=== PATIENT | male | born 1980 | race Caucasian/White ===

== ENCOUNTER 2019-09-16 08:52 | Inpatient (IN) | payer BC, OTHER ==
[~2019-09-16] VITALS: Ht 160 cm; Wt 54.5 kg
[2019-09-16 09:15] LABS: BASOPHILS % (AUTO) 0.3 % (0.0-5.0); EOSINOPHILS % (AUTO) 2.4 % (0.0-8.0); HEMATOCRIT 26.8 % (42-54); LYMPHOCYTES % (AUTO) 8.9 % (21.0-51.0); MEAN CORPUSCULAR HEMOGLOBIN 37.8 pg (27.0-33.0); MEAN CORPUSCULAR HGB CONC 33.5 g/dL (32.0-36.0); MONOCYTES % (AUTO) 7.5 % (3.0-13.0); NEUTROPHILS % (AUTO) 80.9 % (40.0-77.0); PLATELET COUNT (AUTO) 431 K/uL (130-400); RED BLOOD CELL COUNT(AUTO) 2.37 MIL/uL (4.50-6.20); RED CELL DISTRIBUTION WIDTH 19.6 % (11.0-15.5); WHITE BLOOD COUNT (AUTO) 20.1 K/uL (4.8-10.8)
[2019-09-16 09:28] LABS: POTASSIUM 3.1 mmol/L (3.5-5.1)
[2019-09-16 09:30] LABS: INR 1.64 (0.85-1.15); PARTIAL THROMBOPLASTIN TIME 33.4 SEC (26.3-35.5); PROTHROMBIN TIME 16.9 SEC (9.6-11.6)
[2019-09-16 09:32] LABS: ALBUMIN 1.6 g/dL (3.5-5.0); BILIRUBIN,TOTAL 12.5 mg/dL (0.2-1.0)
[2019-09-16 09:34] LABS: AMYLASE 33 U/L (25-115); LIPASE 110 U/L (114-286)
[2019-09-16] MEDS ORDERED: ONDANSETRON HCL 4 MG/2 ML VIAL ONE (09:49)
[2019-09-16] MEDS ORDERED: SODIUM CHLORIDE 0.9% 1000ML 1,000 ML IV ONE ×3 (09:50→14:52)
[2019-09-16] MEDS ORDERED: ZOSYN 3.375GM+NS 50ML 50 ML IV ONE ×2 (11:20→11:26)
[2019-09-16] MEDS ORDERED: MIDODRINE HCL 5 MG TABLET ONE (14:53)
[2019-09-16] MEDS ORDERED: ACETAMINOPHEN-CODEINE 300/30MG TAB PO PRN ×2 (17:45)
[2019-09-16] MEDS ORDERED: PHARMACY COMMUNICATION MISC PRN (17:45)
[2019-09-16] MEDS: POTASSIUM CHLORIDE 20 MEQ ERTAB PO SCH (17:45)
[2019-09-16] MEDS ORDERED: ACETAMINOPHEN 325 MG TAB PO PRN ×2 (17:45)
[2019-09-16] MEDS ORDERED: CHLORDIAZEPOXIDE HCL 25 MG CAP PO PRN (17:45)
[2019-09-16] MEDS ORDERED: HYDRALAZINE HCL 20 MG/ML VIAL IV PRN (17:45)
[2019-09-16] MEDS ORDERED: ONDANSETRON HCL 4 MG/2 ML VIAL IV PRN (17:45)
[2019-09-16 18:36] LABS: % IRON SATURATION 62.2 % (30-44)
[2019-09-16 18:43] LABS: PHOSPHORUS 3.3 mg/dL (2.5-4.9); THYROID STIMULATING HORMONE 2.58 uIU/mL (0.36-3.74)
[2019-09-16] MEDS ORDERED: POTASSIUM CHLORIDE 20 MEQ ERTAB PO ONE (19:56)
--- NOTE | 2019-09-16 20:29 | NUR ---
ADMISSION. PATIENT TRANSFERRED FORM ER VIA STRETCHER, AWAKE, ALERT AND RESPONSIVE. NO C/O PAIN OR DISCOMFORT AT THIS TIME. PT ORIENTED TO ROOM, CALL VILLASENOR WITHIN REACH, BED IN LOWEST POSITION. Addendum: 09/16/19 at 2049 by MARCEL GOLDBERG RN Amended: Links added.
[2019-09-16 20:30] VITALS: BP 95/65
[2019-09-16 20:50] LABS: APPEARANCE,URINE CLOUDY (CLEAR); BILIRUBIN,URINE LARGE (NEGATIVE); COLOR,URINE BROWN (YELLOW); GLUCOSE, URINE (UA) 100 mg/dL (NEGATIVE); KETONES,URINE 5 mg/dL (NEGATIVE); LEUKOCYTE ESTERASE ,URINE NEGATIVE (NEGATIVE); NITRATE,URINE POSITIVE (NEGATIVE); OCCULT BLOOD,URINE NEGATIVE (NEGATIVE); PROTEIN,URINE 30 mg/dL (NEGATIVE)
[2019-09-16] MEDS: LACTULOSE 20 GM/30 ML UDCUP PO SCH (21:00)
[2019-09-16] MEDS: MIDODRINE HCL 5 MG TABLET PO SCH (21:00)
[2019-09-16 21:04] LABS: BACTERIA,URINE Many /HPF (None Seen); MUCUS,URINE Few LPF (None Seen); SQUAMOUS EPITHELIAL CELL,UR 0-2 /HPF (0-2)
[2019-09-16 21:09] LABS: AMPHET/METH SCREEN,URINE NEGATIVE (NEGATIVE); BARBITURATE SCREEN, URINE NEGATIVE (NEGATIVE); BENZODIAZEPINES SCREEN,URINE NEGATIVE (NEGATIVE); CANNABINOID SCREEN,URINE NEGATIVE (NEGATIVE); COCAINE SCREEN,URINE NEGATIVE (NEGATIVE); OPIATE SCREEN,URINE NEGATIVE (NEGATIVE); PHENCYCLIDINE SCREEN,URINE NEGATIVE (NEGATIVE)
[2019-09-16] MEDS: ZOSYN 3.375GM+NS 50ML 50 ML IV SCH (22:22)
[2019-09-16] MEDS: SODIUM CHLORIDE 0.9% 1000ML 1,000 ML IV SCH (22:23)
[2019-09-16] MEDS: FAMOTIDINE/PF 20 MG/2 ML VIAL IV SCH (22:23)
[2019-09-16 23:48] VITALS: BP 94/74
[2019-09-17] VITALS (8 sets, daily range): BP systolic 90–114; BP diastolic 47–77
[2019-09-17] MEDS: SODIUM CHLORIDE 0.9% 1000ML 1,000 ML IV SCH (01:32)
[2019-09-17 05:00] LABS: BASOPHILS % (AUTO) 0.7 % (0.0-5.0); EOSINOPHILS % (AUTO) 2.7 % (0.0-8.0); HEMATOCRIT 23.2 % (42-54); MEAN CORPUSCULAR HGB CONC 32.3 g/dL (32.0-36.0); MEAN CORPUSCULAR VOLUME 114.6 fL (79-99); MONOCYTES % (AUTO) 9.5 % (3.0-13.0); NEUTROPHILS % (AUTO) 76.1 % (40.0-77.0); PLATELET COUNT (AUTO) 319 K/uL (130-400); RED BLOOD CELL COUNT(AUTO) 2.02 MIL/uL (4.50-6.20); RED CELL DISTRIBUTION WIDTH 18.6 % (11.0-15.5); WHITE BLOOD COUNT (AUTO) 17.2 K/uL (4.8-10.8)
[2019-09-17 05:02] LABS: INR 1.62 (0.85-1.15); PARTIAL THROMBOPLASTIN TIME 38.1 SEC (26.3-35.5); PROTHROMBIN TIME 16.7 SEC (9.6-11.6)
[2019-09-17] MEDS: MIDODRINE HCL 5 MG TABLET PO SCH ×3 (05:19→21:23)
[2019-09-17 05:20] LABS: ALBUMIN 1.2 g/dL (3.5-5.0); BILIRUBIN,TOTAL 10.5 mg/dL (0.2-1.0); CREATININE 0.8 mg/dL (0.5-1.5); POTASSIUM 3.5 mmol/L (3.5-5.1); TOTAL PROTEIN, SERUM 5.3 g/dL (6.0-8.3)
[2019-09-17] MEDS: ZOSYN 3.375GM+NS 50ML 50 ML IV SCH ×3 (05:24→21:23)
[2019-09-17] MEDS: THIAMINE HCL 100 MG/ML 2ML VIAL IM SCH (09:00)
[2019-09-17] MEDS: LACTULOSE 20 GM/30 ML UDCUP PO SCH ×2 (09:28→21:23)
[2019-09-17] MEDS: FAMOTIDINE/PF 20 MG/2 ML VIAL IV SCH ×2 (09:30→21:23)
[2019-09-17] MEDS: FOLIC ACID 1 MG TABLET PO SCH (09:30)
[2019-09-17] MEDS: MULTIVITAMIN TABLET PO SCH (09:30)
--- NOTE | 2019-09-17 14:18 | NUR ---
DCP CM met with pt discussed dc plans. Pt is independent prior to admission, lives at home alone, father lives close by. Denies any equipments/sevices. Feels safe to go back home, still drives, father able to assist with transportation and needs as necessary. DC plan to home once stable. CM to cont to follow up. Addendum: 09/17/19 at 1419 by ANA MARÍA RODRIGUEZ LVN CM Amended: Links added.
--- NOTE | 2019-09-17 15:10 | NUR ---
RD Notification Pt admitted for Acute Alcoholic hepatitis, acute hyponatremia. Pt with Hx of Alcohol abuse. Pt with Thiamine in place. Pt with elevated LFTs with lactulose in place. Upon visit, Pt reports no GI distress, however was not yet hungry for lunch meal. RD recommends to continue current diet. Recommend to add 30mL ProMod TID for severe PCM. Pt LBM 09/16/19. Pt monitored labs: Hgb 7.5, Hct 23.2, Na 131, Cl 97, Ca 7.3, Fe 56, TIBC 90, %62.2, T. Bili 12.5, AST 149, Alk 147, Alb 1.2. RD to continue to monitor. Please notify RD as additional nutrition concerns arise. Thank you. Addendum: 09/17/19 at [address] Amended: Links added.
--- NOTE | 2019-09-17 16:00 | NUR ---
U/S GD PARACENTESIS PROCEDURE PERFORMED BY DR BRANDT. PUNCTURE SITE RIGHT LOWER QUADRANT OF ABDOMEN AND PATIENT TOLERATED PROCEDURE WELL. TOTAL REMOVED 5.0 LITERS OF CLOUDY YELLOW FLUID. END OF PROCEDURE AT 1625. CATHETER REMOVED AND DRESSING APPLIED. NO BLEEDING NOTED. ALBUMIN 25% 25 GRAMS ORDERED TO BE GIVEN IV UPON ARRIVAL TO F[place] [facility]. REPORT CALLED TO DANETTE DE LA ROSA. PT TRANSFERRED BACK TO ROOM 325 VIA BED. PT STABLE, AAO X3, DROWSY, WITH NO C/O PAIN. SPECIMEN SENT TO LAB.
[2019-09-17] MEDS ORDERED: ALBUMIN (HUMAN) 25% 100 ML IV SCH (16:15)
--- NOTE | 2019-09-17 16:15 | NUR ---
BACK FROM HAVING PARA, WALKING ABOUT IN ROOM , INSISTING TO GO OUTSIDE TO SMOKE, GETTING AGITATED, CHARGE NURSE NOTIFIED.
[2019-09-17] MEDS: POTASSIUM CHLORIDE 20 MEQ ERTAB PO SCH (17:45)
[2019-09-17 18:03] LABS: SPECIMENTYPE,BODY FLUID ASCITES
[2019-09-17 18:05] LABS: APPEARANCE BODY FLUID CLEAR (CLEAR); COLOR,BODY FLUID YELLOW (LT YELLOW); TOTAL VOLUME,BODY FLUID 5000 mL
[2019-09-17 18:06] LABS: BODY FLUID WBC 54 /cu. mm.
[2019-09-17 18:07] LABS: BODY FLUID RBC 109 /cu. mm.
[2019-09-17 19:31] LABS: BF LYMPHOCYTE 17 %; BF MONOCYTE 7 %
[2019-09-17 20:32] LABS: BILIRUBIN,TOTAL 10.5 mg/dL (0.2-1.0)
[2019-09-17 20:41] LABS: BILIRUBIN,DIRECT 9.1 mg/dL (0.0-0.3)
[2019-09-18] VITALS (8 sets, daily range): BP systolic 82–111; BP diastolic 47–60
--- NOTE | 2019-09-18 03:55 | NUR ---
10 MG OF MIDODRINE GIVEN ORDERED BY LICENSED AUDIOLOGIST TAMIA. PT DENIES SOB OR CHEST PAIN PT ASYMPTOMATIC MANUAL BP TAKEN LEFT ARM 82/59 AJ LICENSED AUDIOLOGIST AWARE
[2019-09-18] MEDS: ZOSYN 3.375GM+NS 50ML 50 ML IV SCH ×3 (05:00→22:16)
[2019-09-18] MEDS ORDERED: MIDODRINE HCL 5 MG TABLET PO SCH (05:00)
[2019-09-18 05:03] LABS: BASOPHILS % (AUTO) 0.8 % (0.0-5.0); EOSINOPHILS % (AUTO) 2.9 % (0.0-8.0); HEMATOCRIT 22.7 % (42-54); LYMPHOCYTES % (AUTO) 15.7 % (21.0-51.0); MEAN CORPUSCULAR HEMOGLOBIN 35.7 pg (27.0-33.0); MEAN CORPUSCULAR VOLUME 111.5 fL (79-99); NEUTROPHILS % (AUTO) 71.6 % (40.0-77.0); PLATELET COUNT (AUTO) 309 K/uL (130-400); RED BLOOD CELL COUNT(AUTO) 2.03 MIL/uL (4.50-6.20); RED CELL DISTRIBUTION WIDTH 17.6 % (11.0-15.5); WHITE BLOOD COUNT (AUTO) 12.9 K/uL (4.8-10.8)
[2019-09-18 05:31] LABS: ALBUMIN 1.5 g/dL (3.5-5.0); BILIRUBIN,TOTAL 9.2 mg/dL (0.2-1.0); CREATININE 0.9 mg/dL (0.5-1.5); TOTAL PROTEIN, SERUM 5.2 g/dL (6.0-8.3)
[2019-09-18 05:39] LABS: POTASSIUM 2.6 mmol/L (3.5-5.1)
[2019-09-18] MEDS ORDERED: LIDOCAINE HCL-MPF 1% 2ML VIAL ONE (05:52)
[2019-09-18] MEDS ORDERED: POTASSIUM CHLORIDE 20MEQ/100ML 100 ML IV ONE (05:52)
[2019-09-18] MEDS: MIDODRINE HCL 5 MG TABLET PO SCH ×3 (05:59→22:17)
[2019-09-18] MEDS ORDERED: LIDOCAINE HCL-MPF 1% 2ML VIAL IV PRN (06:00)
[2019-09-18] MEDS ORDERED: POTASSIUM CHLORIDE 10% ELIXIR 20 MEQ/15 ML UDCUP PO PRN (06:00)
[2019-09-18] MEDS ORDERED: POTASSIUM CHLORIDE 20 MEQ ERTAB PO PRN (06:00)
[2019-09-18] MEDS ORDERED: POTASSIUM CHLORIDE 20MEQ/100ML 100 ML IV PRN (06:00)
[2019-09-18] MEDS ORDERED: GADODIAMIDE 10 MMOL/20 ML VIAL IV ONE (08:38)
--- NOTE | 2019-09-18 09:20 | NUR ---
PT INSTRUCTED NOT TO LEAVE LEFT ROOM, HEADING DOWN STAIRS. STATES DOES NOT CARE HE IS LEAVING.
[2019-09-18] MEDS: FOLIC ACID 1 MG TABLET PO SCH (10:05)
[2019-09-18] MEDS: MULTIVITAMIN TABLET PO SCH (10:05)
[2019-09-18] MEDS: THIAMINE HCL 100 MG/ML 2ML VIAL IM SCH (10:06)
[2019-09-18] MEDS: SODIUM CHLORIDE 0.9% 1000ML 1,000 ML IV SCH (10:06)
[2019-09-18] MEDS: FAMOTIDINE/PF 20 MG/2 ML VIAL IV SCH ×2 (10:06→22:16)
[2019-09-18] MEDS: LACTULOSE 20 GM/30 ML UDCUP PO SCH ×2 (10:06→21:00)
[2019-09-18] MEDS ORDERED: NICOTINE 14 MG/ 24 HR PATCH TD SCH (11:15)
--- NOTE | 2019-09-18 12:30 | NUR ---
PT INSTRUCTED NOT TO LEAVE LEFT ROOM, HEADING DOWN STAIRS. STATES DOES NOT CARE HE IS LEAVING.
--- NOTE | 2019-09-18 14:34 | NUR ---
ETOH Sw met with pt who reports long hx of alcohol abuse since age 17. Rum is alcohol of choice. Pt states he quit as soon as he was dx with cirrhosis. Pt states he has not had any withdrawals since stopping but believes his father will try and send him to rehab after dc. Pt refused resource list offered. Discussed directives. Pt stated "I am not dying". My dad will make decisions when needed.
[2019-09-18] MEDS: POTASSIUM CHLORIDE 20 MEQ ERTAB PO SCH (17:45)
[2019-09-18] MEDS ORDERED: MAGNESIUM 2GM PREMIX 50ML 50 ML IV ONE (18:01)
[2019-09-18] MEDS ORDERED: POTASSIUM CHLORIDE 10% ELIXIR 20 MEQ/15 ML UDCUP PO SCH (21:00)
[2019-09-19 03:00] VITALS: BP 89/59
[2019-09-19 05:33] LABS: BASOPHILS % (AUTO) 1.2 % (0.0-5.0); EOSINOPHILS % (AUTO) 3.1 % (0.0-8.0); HEMATOCRIT 22.8 % (42-54); LYMPHOCYTES % (AUTO) 15.5 % (21.0-51.0); MEAN CORPUSCULAR HGB CONC 32.4 g/dL (32.0-36.0); MEAN CORPUSCULAR VOLUME 111.2 fL (79-99); MONOCYTES % (AUTO) 8.9 % (3.0-13.0); NEUTROPHILS % (AUTO) 71.3 % (40.0-77.0); PLATELET COUNT (AUTO) 321 K/uL (130-400); RED BLOOD CELL COUNT(AUTO) 2.05 MIL/uL (4.50-6.20); RED CELL DISTRIBUTION WIDTH 17.6 % (11.0-15.5); WHITE BLOOD COUNT (AUTO) 13.7 K/uL (4.8-10.8)
[2019-09-19 05:41] LABS: CREATININE 0.8 mg/dL (0.5-1.5); POTASSIUM 3.5 mmol/L (3.5-5.1)
[2019-09-19] MEDS: ZOSYN 3.375GM+NS 50ML 50 ML IV SCH (06:33)
[2019-09-19] MEDS: MIDODRINE HCL 5 MG TABLET PO SCH (06:36)
[2019-09-19 08:00] VITALS: BP 98/53
--- NOTE | 2019-09-19 08:10 | NUR ---
PT RESFUSING TREATMENT, REFUSAL FORM SIGNED PT REFUSING TELE PACK, MEDICATIONS INCLUDING ANTIBIOTICS. PT KEEPS GOING DOWNSTAIRS FOR A SMOKE EVEN THOUGH PT'S BLOOD PRESSURE IS BORDERLINE LOW. BRAXTON DENSON.
[2019-09-19] MEDS ORDERED: NICOTINE 14 MG/ 24 HR PATCH TD SCH (09:00)
[2019-09-19 09:10] LABS: HEPATITIS A ANTIBODY IGM Negative (Negative); HEPATITIS B CORE IGM Negative (Negative); HEPATITIS Bs ANTIGEN SCREEN P Negative (Negative)
[2019-09-19] MEDS ORDERED: CEFD300C3 PO (11:18)
[2019-09-19] MEDS ORDERED: FOLI0.4T2 PO (11:18)
[2019-09-19] MEDS ORDERED: LACT PO (11:18)
[2019-09-19] MEDS ORDERED: THIA100T75 PO (11:18)
--- NOTE | 2019-09-19 13:20 | NUR ---
PT D/C HOME USING TEACH BACK TECHNIQUE RE; HOME MEDS, NEW MEDS, S/S TO WATCH FOR AND WHEN TO CALL MD OR 911. PLEASE FOLLOW UP WITH DR ANUP SANDOVAL [phone] IN 1-2 WKS. PLEASE CALL OFFICE ONCED DISCHARGED FROM HOSPITAL. FOLLOW WITH YOUR PRIMARY DOCTOR IN 2-4 DAYS. CALL YOUR PRIMARY DOCTOR IF SEVERE ABDOMINAL PAIN OCCURS OR IF YOU NOTICE BLOOD IN YOUR STOOLS OR VOMITING BLOOD. IF SEVERE NOTICED CALL 911. IV WAS OUT SINCE 0800 AM SINCE PT WAS REFUSING ALL MEDS, IV MEDS, PO MEDS AND FLUIDS. REFUSAL SIGNED. AAOX3, DENIES ANY DISTRESS.
== END 2019-09-19 13:35 | disposition home or self-care (01) | DRG 432 ==
LOC: EDH 08:52 → EDHIP 17:32 → 3DH 20:11
PROVIDERS: ADMIT Internal Medicine; ATTEND Internal Medicine
PROC: 0W9G3ZZ Drainage of Peritoneal Cavity, Percutaneous Approach (ICD-10-PCS; principal; 2019-09-17)
DX: K70.11 Alcoholic hepatitis with ascites (principal); E43 Unspecified severe protein-calorie malnutrition; E87.1 Hypo-osmolality and hyponatremia; D68.9 Coagulation defect, unspecified; N39.0 Urinary tract infection, site not specified; E86.1 Hypovolemia; E87.6 Hypokalemia; F10.20 Alcohol dependence, uncomplicated; D53.9 Nutritional anemia, unspecified; E87.8 Other disorders of electrolyte and fluid balance, not elsewhere classified; F17.200 Nicotine dependence, unspecified, uncomplicated; J45.909 Unspecified asthma, uncomplicated; I95.9 Hypotension, unspecified; Y90.0 Blood alcohol level of less than 20 mg/100 ml; K70.31 Alcoholic cirrhosis of liver with ascites; Z91.19 Patient's noncompliance with other medical treatment and regimen; Z91.14 Patient's other noncompliance with medication regimen; Z68.21 Body mass index [BMI] 21.0-21.9, adult
CPT/HCPCS: 36415; 49083; 71045; 74176; 74183; 76705; 80048; 80053; 80074; 80305; 81001; 82105; 82140; 82150; 82247; 82248; 82378; 82977; 83540; 83550; 83605; 83615; 83690; 83735; 83880; 84100; 84145; 84443; 84484; 85025; 85610; 85730; 86038; 87040; 87071; 87088; 87205; 88108; 88305; 89051; 93005; A9579; G0378; G0480; J2405; J2543; J3411; J3475; J3480; J3490; J7030; P9046

== ENCOUNTER 2019-09-22 11:05 | Inpatient (IN) | payer OTHER ==
[~2019-09-22] VITALS: Ht 165.1 cm; Wt 52.3 kg
[~2019-09-22 11:05] MED LIST: CEFD300C3 PO; FOLI0.4T2 PO; LACT PO; THIA100T75 PO
[2019-09-22 11:28] LABS: BASOPHILS % (AUTO) 1.1 % (0.0-5.0); EOSINOPHILS % (AUTO) 1.5 % (0.0-8.0); HEMATOCRIT 27.5 % (42-54); LYMPHOCYTES % (AUTO) 11.4 % (21.0-51.0); MEAN CORPUSCULAR HEMOGLOBIN 35.1 pg (27.0-33.0); MEAN CORPUSCULAR HGB CONC 32.4 g/dL (32.0-36.0); MEAN CORPUSCULAR VOLUME 108.3 fL (79-99); MONOCYTES % (AUTO) 6.9 % (3.0-13.0); NEUTROPHILS % (AUTO) 79.1 % (40.0-77.0); PLATELET COUNT (AUTO) 408 K/uL (130-400); RED BLOOD CELL COUNT(AUTO) 2.54 MIL/uL (4.50-6.20); RED CELL DISTRIBUTION WIDTH 17.1 % (11.0-15.5); WHITE BLOOD COUNT (AUTO) 19.9 K/uL (4.8-10.8)
[2019-09-22 11:29] LABS: CREATININE 0.7 mg/dL (0.5-1.5); POTASSIUM 3.6 mmol/L (3.5-5.1)
[2019-09-22 11:33] LABS: ALBUMIN 1.6 g/dL (3.5-5.0); BILIRUBIN,TOTAL 9.1 mg/dL (0.2-1.0); TOTAL PROTEIN, SERUM 6.3 g/dL (6.0-8.3)
[2019-09-22 11:50] LABS: INR 1.56 (0.85-1.15); PARTIAL THROMBOPLASTIN TIME 37.2 SEC (26.3-35.5); PROTHROMBIN TIME 16.1 SEC (9.6-11.6)
[2019-09-22] MEDS ORDERED: ZOSYN 3.375GM+NS 50ML 50 ML IV ONE (13:41)
[2019-09-22] MEDS ORDERED: CEFTRIAXONE SODIUM 1 GM IV SCH (14:15)
[2019-09-22] MEDS ORDERED: LORAZEPAM 2 MG/ML 1 ML VIAL IVP PRN (14:30)
[2019-09-22] MEDS ORDERED: CHLORDIAZEPOXIDE HCL 25 MG CAP PO PRN (14:30)
[2019-09-22] MEDS ORDERED: NICOTINE 14 MG/ 24 HR PATCH TD SCH (14:30)
[2019-09-22] MEDS ORDERED: PHARMACY COMMUNICATION MISC PRN (14:30)
[2019-09-22] MEDS ORDERED: FAMOTIDINE 20MG TAB 20 MG TAB PO SCH (15:00)
[2019-09-22 19:56] VITALS: BP 110/66
[2019-09-22] MEDS: ZOSYN 3.375GM+NS 50ML 50 ML IV SCH (21:46)
[2019-09-22] MEDS: LACTULOSE 20 GM/30 ML UDCUP PO SCH (21:47)
[2019-09-22] MEDS: FAMOTIDINE 20MG TAB 20 MG TAB PO SCH (21:47)
[2019-09-22 23:50] VITALS: BP 90/49
[2019-09-23] VITALS (12 sets, daily range): BP systolic 83–114; BP diastolic 51–70
[2019-09-23] MEDS: ZOSYN 3.375GM+NS 50ML 50 ML IV SCH ×3 (05:08→21:38)
[2019-09-23 06:04] LABS: BASOPHILS % (AUTO) 1.2 % (0.0-5.0); EOSINOPHILS % (AUTO) 2.1 % (0.0-8.0); HEMATOCRIT 25.5 % (42-54); LYMPHOCYTES % (AUTO) 13.4 % (21.0-51.0); MEAN CORPUSCULAR HEMOGLOBIN 35.2 pg (27.0-33.0); MEAN CORPUSCULAR HGB CONC 32.5 g/dL (32.0-36.0); MEAN CORPUSCULAR VOLUME 108.3 fL (79-99); MONOCYTES % (AUTO) 9.4 % (3.0-13.0); NEUTROPHILS % (AUTO) 73.9 % (40.0-77.0); PLATELET COUNT (AUTO) 314 K/uL (130-400); RED BLOOD CELL COUNT(AUTO) 2.36 MIL/uL (4.50-6.20); RED CELL DISTRIBUTION WIDTH 16.9 % (11.0-15.5); WHITE BLOOD COUNT (AUTO) 16.7 K/uL (4.8-10.8)
[2019-09-23 06:15] LABS: ALANINE AMINOTRANSFERASE 32 U/L (12-78); ALBUMIN 1.3 g/dL (3.5-5.0); ASPARTATE AMINOTRANSFERASE 181 U/L (10-37); BILIRUBIN,TOTAL 7.6 mg/dL (0.2-1.0); CARBON DIOXIDE 24 mmol/L (21-32); CHLORIDE 98 mmol/L (101-111); CREATININE 0.8 mg/dL (0.5-1.5); GLOMERULAR FILTR. RATE CALC 116 mL/min (>60); GLUCOSE,RANDOM 84 mg/dL (70-105); POTASSIUM 3.6 mmol/L (3.5-5.1); SODIUM SERUM 131 mmol/L (136-145); TOTAL PROTEIN, SERUM 5.8 g/dL (6.0-8.3); UREA NITROGEN, BLOOD 13 mg/dL (7-18)
[2019-09-23 06:18] LABS: AMMONIA < 10 umol/L (11-32)
[2019-09-23] MEDS ORDERED: FOLIC ACID 1 MG TABLET PO SCH (09:00)
[2019-09-23] MEDS: NICOTINE 14 MG/ 24 HR PATCH TD SCH (09:00)
[2019-09-23] MEDS ORDERED: ENOXAPARIN SODIUM 30 MG/0.3 ML SQ SCH (09:00)
--- NOTE | 2019-09-23 09:10 | NUR ---
U/S GD PARACENTESIS PROCEDURE PERFORMED BY DR BRANDT. PUNCTURE SITE RIGHT LOWER QUADRANT OF ABDOMEN AND PATIENT TOLERATED PROCEDURE WELL. TOTAL REMOVED 5.7 LITERS OF CLOUDY SELENE ASCITES FLUID. END OF PROCEDURE AT 0945. CATHETER REMOVED AND DRESSING APPLIED. NO BLEEDING NOTED. ALBUMIN 25% 50 GRAMS ORDERED TO BE GIVEN UPON [place]AL TO RO[place] [facility] [place]. REPORT CALLED TO DANETTE CAMPUZANO. PT TRANSFERRED TO 3RD FLOOR RM 321 VIA W/C, STABLE, AAO X3 WITH NO C/O PAIN. SPECIMEN SENT TO LAB.
[2019-09-23] MEDS: FAMOTIDINE 20MG TAB 20 MG TAB PO SCH ×2 (11:33→21:38)
[2019-09-23] MEDS: THIAMINE HCL 100 MG TABLET PO SCH (11:33)
[2019-09-23] MEDS: MULTIVITAMIN TABLET PO SCH (11:33)
[2019-09-23] MEDS: FOLIC ACID 1 MG TABLET PO SCH (11:33)
[2019-09-23] MEDS: LACTULOSE 20 GM/30 ML UDCUP PO SCH ×2 (11:34→21:00)
--- NOTE | 2019-09-23 11:36 | NUR ---
DC PLAN PER PATIENT STATES HE IS INDEPENDENT, LIVES WITH PARENTS, NO PROVIDER, HAS ROLLING WALKER AND FEELS SAFE TO RETURN HOME. LOW INCOME PACKET GIVEN DUE TO SELF PAY STATUS, PATIENT VERBALIZED UNDERSTANDING OF PACKET. Addendum: 09/23/19 at 1137 by ARAMIS SHEA RN Amended: Links added.
[2019-09-23] MEDS ORDERED: ALBUMIN (HUMAN) 25% 200 ML IV ONE (12:00)
[2019-09-23 13:31] LABS: APPEARANCE BODY FLUID SLIGHTLY CLOUDY (CLEAR); COLOR,BODY FLUID DARK YELLOW (LT YELLOW); SPECIMENTYPE,BODY FLUID ASCITES
[2019-09-23 13:32] LABS: BODY FLUID RBC 4700 /cu. mm.; BODY FLUID WBC 108 /cu. mm.
[2019-09-23 13:35] LABS: BF LYMPHOCYTE 5 %; BF MESOTHELIAL 72 %; BF MONOCYTE 12 %
[2019-09-23 13:42] LABS: TOTAL VOLUME,BODY FLUID 5700 mL
--- NOTE | 2019-09-23 14:00 | NUR ---
s/p paracentesis 5L. out
--- NOTE | 2019-09-23 15:33 | NUR ---
RD Notification Pt admitted for Dyspnea, Alcoholic liver with Ascites. Pt tolerating current diet with no report of GI distress. Pt feels full quickly, recommend 4-6 small meals. Also recommend Heart Healthy, Low Sodium diet. RD provided Cirrhosis diet education. Pt LBM 09/21. Pt monitored labs: Na 131, Cl 98, Ca 7.6, T. bili 7.6, AST 181, Alk 205, NH <10, Alb 1.3. RD to continue to monitor. Please notify RD as additional nutrition concerns arise. Thank you. Addendum: 09/23/19 at [address] Amended: Links added.
--- NOTE | 2019-09-23 15:45 | NUR ---
DIET EDUCATION RD provided Cirrhosis Diet education with emphasis on Low sodium, 4-6small meals, and nutrient content of foods, no alcohol consumption. Pt reports mom with multiple questions and she is promotional representative of meals at home. KUMAR reviewed reference materials with Pt. Pt with questions. RD answered all questions. Pt verbalized understanding. RD encouraged Pt to notify as additional questions or concerns arise. RD to continue to monitor. Addendum: 09/23/19 at [address] Amended: Links added.
[2019-09-23 19:07] LABS: APPEARANCE,URINE TURBID (CLEAR); BILIRUBIN,URINE LARGE (NEGATIVE); COLOR,URINE BROWN (YELLOW); GLUCOSE, URINE (UA) NEGATIVE (NEGATIVE); KETONES,URINE 5 mg/dL (NEGATIVE); LEUKOCYTE ESTERASE ,URINE TRACE (NEGATIVE); NITRATE,URINE POSITIVE (NEGATIVE); OCCULT BLOOD,URINE NEGATIVE (NEGATIVE); PH,URINE 6.5 (5.0-8.0); PROTEIN,URINE 30 mg/dL (NEGATIVE)
[2019-09-23 19:18] LABS: AMORPHOUS SEDIMENT,UR Many /LPF (None Seen); BACTERIA,URINE Few /HPF (None Seen); MUCUS,URINE Few LPF (None Seen); SQUAMOUS EPITHELIAL CELL,UR 0-2 /HPF (0-2)
[2019-09-23 19:21] LABS: AMPHET/METH SCREEN,URINE NEGATIVE (NEGATIVE); BARBITURATE SCREEN, URINE NEGATIVE (NEGATIVE); BENZODIAZEPINES SCREEN,URINE NEGATIVE (NEGATIVE); CANNABINOID SCREEN,URINE NEGATIVE (NEGATIVE); COCAINE SCREEN,URINE NEGATIVE (NEGATIVE); OPIATE SCREEN,URINE NEGATIVE (NEGATIVE); PHENCYCLIDINE SCREEN,URINE NEGATIVE (NEGATIVE)
[2019-09-24 03:00] VITALS: BP 90/55
[2019-09-24 05:17] LABS: BASOPHILS % (AUTO) 0.4 % (0.0-5.0); EOSINOPHILS % (AUTO) 2.3 % (0.0-8.0); HEMATOCRIT 23.7 % (42-54); LYMPHOCYTES % (AUTO) 17.2 % (21.0-51.0); MEAN CORPUSCULAR HEMOGLOBIN 34.6 pg (27.0-33.0); MEAN CORPUSCULAR HGB CONC 32.5 g/dL (32.0-36.0); MEAN CORPUSCULAR VOLUME 106.4 fL (79-99); MONOCYTES % (AUTO) 8.3 % (3.0-13.0); NEUTROPHILS % (AUTO) 71.8 % (40.0-77.0); PLATELET COUNT (AUTO) 263 K/uL (130-400); RED BLOOD CELL COUNT(AUTO) 2.22 MIL/uL (4.50-6.20); RED CELL DISTRIBUTION WIDTH 16.4 % (11.0-15.5); WHITE BLOOD COUNT (AUTO) 11.5 K/uL (4.8-10.8)
[2019-09-24 05:41] LABS: ALBUMIN 2.1 g/dL (3.5-5.0); BILIRUBIN,TOTAL 6.2 mg/dL (0.2-1.0); CREATININE 0.8 mg/dL (0.5-1.5); TOTAL PROTEIN, SERUM 5.9 g/dL (6.0-8.3)
[2019-09-24] MEDS: ZOSYN 3.375GM+NS 50ML 50 ML IV SCH ×2 (06:09→13:45)
--- NOTE | 2019-09-24 06:20 | NUR ---
PAGED MILLING GENERAL SUPERINTENDENT FOR HOSPITALIST, REGARDING ELECTROLYTES LEVEL LOW POTASSIUM 3.0 AND H AND H PATIENT SEEN AND ASSESSED, DENIED ANY CHEST PAIN NOR MUSCLE WEAKNESS NOR DIZZINESS. PENDING FOR CALL BACK
[2019-09-24 08:00] VITALS: BP 94/58
[2019-09-24] MEDS: MULTIVITAMIN TABLET PO SCH (08:53)
[2019-09-24] MEDS: FOLIC ACID 1 MG TABLET PO SCH (08:53)
[2019-09-24] MEDS: FAMOTIDINE 20MG TAB 20 MG TAB PO SCH (08:53)
[2019-09-24] MEDS: NICOTINE 14 MG/ 24 HR PATCH TD SCH (08:53)
[2019-09-24] MEDS: THIAMINE HCL 100 MG TABLET PO SCH (08:54)
[2019-09-24] MEDS: LACTULOSE 20 GM/30 ML UDCUP PO SCH (08:56)
[2019-09-24] MEDS ORDERED: MIDO5TAB4 PO (10:28)
[2019-09-24] MEDS ORDERED: SPIR25TA6 PO (10:28)
[2019-09-24] MEDS ORDERED: PANT40TA25 PO (10:28)
[2019-09-24] MEDS ORDERED: LEVO500T2 PO (10:28)
[2019-09-24] MEDS ORDERED: POTASSIUM CHLORIDE 20 MEQ ERTAB PO SCH (10:30)
[2019-09-24] MEDS ORDERED: POTASSIUM CHLORIDE 20MEQ/100ML 100 ML IV PRN (10:30)
[2019-09-24] MEDS ORDERED: LIDOCAINE HCL-MPF 1% 2ML VIAL IJ PRN (10:30)
[2019-09-24] MEDS ORDERED: POTASSIUM CHLORIDE 10% ELIXIR 20 MEQ/15 ML UDCUP PO PRN (10:30)
[2019-09-24] MEDS ORDERED: POTASSIUM CHLORIDE 20 MEQ ERTAB PO PRN (10:30)
[2019-09-24 12:00] VITALS: BP 90/58
[2019-09-24] MEDS ORDERED: MIDODRINE HCL 5 MG TABLET PO SCH (14:00)
[2019-09-24 16:00] VITALS: BP 92/60
== END 2019-09-24 18:45 | disposition home or self-care (01) | DRG 871 ==
LOC: EDH 11:05 → EDHIP 14:11 → 3DH 19:22
PROVIDERS: ADMIT Internal Medicine; ATTEND Internal Medicine
PROC: 0W9G3ZZ Drainage of Peritoneal Cavity, Percutaneous Approach (ICD-10-PCS; principal; 2019-09-23)
DX: A41.9 Sepsis, unspecified organism (principal); E43 Unspecified severe protein-calorie malnutrition; D68.9 Coagulation defect, unspecified; N39.0 Urinary tract infection, site not specified; E87.1 Hypo-osmolality and hyponatremia; Z68.1 Body mass index [BMI] 19.9 or less, adult; K70.11 Alcoholic hepatitis with ascites; F17.200 Nicotine dependence, unspecified, uncomplicated; F10.20 Alcohol dependence, uncomplicated; J45.909 Unspecified asthma, uncomplicated; E80.6 Other disorders of bilirubin metabolism; K70.31 Alcoholic cirrhosis of liver with ascites; E87.6 Hypokalemia; Z91.19 Patient's noncompliance with other medical treatment and regimen; Z91.14 Patient's other noncompliance with medication regimen
CPT/HCPCS: 36415; 49083; 71045; 74018; 80053; 80305; 81001; 82140; 83690; 84132; 85025; 85610; 85730; 87040; 87071; 87088; 87205; 89051; 93005; G0378; J2543; P9046

== ENCOUNTER → 2020-01-12 | Outpatient (CLI) | payer OTHER ==
[~2020-01-12] MED LIST changes: -CEFD300C3 PO; -FOLI0.4T2 PO; +FURO20TA4 PO; +MIDO5TAB4 PO; +PANT40TA25 PO; +RIFA550T PO; +SPIR25TA6 PO; -THIA100T75 PO
== END | disposition home or self-care (01) ==
LOC: RAH 14:31
PROVIDERS: ATTEND Internal Medicine
DX: I70.203 Unspecified atherosclerosis of native arteries of extremities, bilateral legs (principal); R60.0 Localized edema
CPT/HCPCS: 93925

== ENCOUNTER 2020-01-25 09:08 | Inpatient (IN) | payer OTHER ==
[~2020-01-25] VITALS: Ht 160 cm; Wt 65.8 kg
[2020-01-25 10:09] LABS: EOSINOPHILS % (AUTO) 2.1 % (0.0-8.0); HEMATOCRIT 33.9 % (42-54); LYMPHOCYTES % (AUTO) 34.1 % (21.0-51.0); MEAN CORPUSCULAR HEMOGLOBIN 29.6 pg (27.0-33.0); MEAN CORPUSCULAR VOLUME 89.7 fL (79-99); MONOCYTES % (AUTO) 8.1 % (3.0-13.0); NEUTROPHILS % (AUTO) 54.5 % (40.0-77.0); PLATELET COUNT (AUTO) 93 K/uL (130-400); RED BLOOD CELL COUNT(AUTO) 3.78 MIL/uL (4.50-6.20); RED CELL DISTRIBUTION WIDTH 19.7 % (11.0-15.5); WHITE BLOOD COUNT (AUTO) 6.3 K/uL (4.8-10.8)
[2020-01-25 10:29] LABS: CARBON DIOXIDE 25 mmol/L (21-32); CHLORIDE 93 mmol/L (101-111); CREATININE 0.7 mg/dL (0.5-1.5); GLOMERULAR FILTR. RATE CALC 135 mL/min (>60); GLUCOSE,RANDOM 54 mg/dL (70-105); INR 1.71 (0.85-1.15); PARTIAL THROMBOPLASTIN TIME 34.9 SEC (26.3-35.5); POTASSIUM 3.9 mmol/L (3.5-5.1); PROTHROMBIN TIME 18.1 SEC (9.6-11.6); SODIUM SERUM 136 mmol/L (136-145); UREA NITROGEN, BLOOD 8 mg/dL (7-18)
[2020-01-25 10:44] LABS: ALANINE AMINOTRANSFERASE 27 U/L (12-78); AMMONIA < 3 umol/L (11-32); ASPARTATE AMINOTRANSFERASE 156 U/L (10-37); BILIRUBIN,TOTAL 6.3 mg/dL (0.2-1.0); TOTAL PROTEIN, SERUM 8.4 g/dL (6.0-8.3)
[2020-01-25 10:45] LABS: ALBUMIN 3.2 g/dL (3.5-5.0); LIPASE 207 U/L (114-286)
[2020-01-25 10:46] LABS: ALCOHOL, BLOOD 302 mg/dL (0-10); CREATINE KINASE, TOTAL 116 U/L (21-232)
[2020-01-25] MEDS ORDERED: M.V.I. IV [ADULT] 10 ML, THIAMINE HCL 100 MG, FOLIC ACID 1 MG in SODIUM CHLORIDE 0.9% 1... IV SCH (11:45)
[2020-01-25] MEDS ORDERED: ONDANSETRON HCL 4 MG/2 ML VIAL ONE (11:51)
[2020-01-25] MEDS ORDERED: LORAZEPAM 2 MG/ML 1 ML VIAL IVP PRN (13:00)
[2020-01-25] MEDS ORDERED: CHLORDIAZEPOXIDE HCL 25 MG CAP PO PRN (13:00)
[2020-01-25] MEDS ORDERED: ACETAMINOPHEN EXTRA STRENGTH 500 MG TABLET PO PRN (13:00)
[2020-01-25] MEDS ORDERED: ONDANSETRON HCL 4 MG/2 ML VIAL IV PRN (13:00)
[2020-01-25] MEDS ORDERED: PHARMACY COMMUNICATION MISC PRN (13:00)
[2020-01-25] MEDS ORDERED: PROMETHAZINE HCL 25 MG TABLET PO PRN (13:00)
--- NOTE | 2020-01-25 14:30 | NUR ---
ADMISSION PER [facility] . REVIEW CARE AND ORDERS TO FOLLOW CIWA MONITORING NOTED NO DISTRESS STATED THAT HE WANT TO GO TO SLEEP , COZ HE DID NOT GET ANY REST IN ER. CALL LIGHT IN REACH WITH FALL PRECAUTIONS REVIEW. BED LEVEL DOWN ..
[2020-01-25 15:00] VITALS: BP 119/75
[2020-01-25 19:55] VITALS: BP 103/67
[2020-01-25 21:34] LABS: CRP QUANTITATIVE 14.7 mg/L (0.00-9.0)
[2020-01-25 21:55] LABS: APPEARANCE,URINE SL CLOUDY (CLEAR); BILIRUBIN,URINE MODERATE (NEGATIVE); GLUCOSE, URINE (UA) NEGATIVE (NEGATIVE); KETONES,URINE 40 mg/dL (NEGATIVE); LEUKOCYTE ESTERASE ,URINE NEGATIVE (NEGATIVE); NITRATE,URINE POSITIVE (NEGATIVE); OCCULT BLOOD,URINE TRACE-INTACT (NEGATIVE); PH,URINE 6.5 (5.0-8.0); PROTEIN,URINE 30 mg/dL (NEGATIVE); UROBILINOGEN,URINE 0.2 mg/dL (0.2-1.0)
[2020-01-25 22:00] LABS: COLOR,URINE ORANGE (YELLOW)
[2020-01-25 22:05] LABS: AMORPHOUS SEDIMENT,UR Few /LPF (None Seen); AMPHET/METH SCREEN,URINE NEGATIVE (NEGATIVE); BACTERIA,URINE Few /HPF (None Seen); BARBITURATE SCREEN, URINE NEGATIVE (NEGATIVE); BENZODIAZEPINES SCREEN,URINE POSITIVE (NEGATIVE); CANNABINOID SCREEN,URINE POSITIVE (NEGATIVE); OPIATE SCREEN,URINE NEGATIVE (NEGATIVE); PHENCYCLIDINE SCREEN,URINE NEGATIVE (NEGATIVE); RBC,URINE None Seen /HPF (0-1); WBC,URINE 0-1 /HPF (0-1)
[2020-01-25 22:16] LABS: COCAINE SCREEN,URINE NEGATIVE (NEGATIVE)
[2020-01-25 23:28] VITALS: BP 114/70
[2020-01-26] VITALS (10 sets, daily range): BP systolic 92–123; BP diastolic 46–66
[2020-01-26 05:07] LABS: BASOPHILS % (AUTO) 0.8 % (0.0-5.0); EOSINOPHILS % (AUTO) 2.8 % (0.0-8.0); HEMATOCRIT 28.7 % (42-54); MEAN CORPUSCULAR HEMOGLOBIN 29.7 pg (27.0-33.0); MEAN CORPUSCULAR HGB CONC 32.8 g/dL (32.0-36.0); MEAN CORPUSCULAR VOLUME 90.8 fL (79-99); MONOCYTES % (AUTO) 9.1 % (3.0-13.0); NEUTROPHILS % (AUTO) 46.1 % (40.0-77.0); PLATELET COUNT (AUTO) 57 K/uL (130-400); RED BLOOD CELL COUNT(AUTO) 3.16 MIL/uL (4.50-6.20); RED CELL DISTRIBUTION WIDTH 19.1 % (11.0-15.5); WHITE BLOOD COUNT (AUTO) 5.1 K/uL (4.8-10.8)
[2020-01-26 05:26] LABS: ALBUMIN 2.9 g/dL (3.5-5.0); BILIRUBIN,TOTAL 6.5 mg/dL (0.2-1.0); CREATININE 0.7 mg/dL (0.5-1.5); MAGNESIUM 1.3 mg/dL (1.80-2.40); PHOSPHORUS 2.4 mg/dL (2.5-4.9); POTASSIUM 3.6 mmol/L (3.5-5.1); TOTAL PROTEIN, SERUM 7.5 g/dL (6.0-8.3)
[2020-01-26] MEDS: FAMOTIDINE/PF 20 MG/2 ML VIAL IV SCH ×2 (09:04→19:35)
[2020-01-26] MEDS: THIAMINE HCL 100 MG, FOLIC ACID 1 MG, M.V.I. IV [ADULT] 10 ML in SODIUM CHLORIDE 0.9% 1... IV SCH (11:31)
--- NOTE | 2020-01-26 11:45 | NUR ---
TO INTRA INVENTIONAL , FOR A PARACENTESIS PROCEDURE ,CONSENT WILL BE DONE AT THE PROCEDURE, PER NURSECAITLIN. P. R.N.
[2020-01-26] MEDS ORDERED: FUROSEMIDE 10 MG/ML 4ML VIAL IV SCH ×2 (11:55→14:45)
--- NOTE | 2020-01-26 12:10 | NUR ---
U/S GD PARACENTESIS PROCEDURE PERFORMED BY DR. OCASIO. PUNCTURE SITE RIGHT UPPER QUADRANT OF ABDOMEN AND PATIENT TOLERATED PROCEDURE WELL. TOTAL REMOVED 1.7 LITERS OF CLOUDY YELLOW FLUID. END OF PROCEDURE AT 1230. CATHETER REMOVED AND DRESSING APPLIED. NO BLEEDING NOTED. REPORT CALLED TO DANETTE CHOI. PT TRANSPORTED TO ROOM 428 VIA W/C, STABLE, AAO X3 WITH NO C/O PAIN.
--- NOTE | 2020-01-26 12:50 | NUR ---
PT BACK FROM HIS PARACENTESIS PROCEDURE, ,PT DID NOT C/O OF RESP OR PAIN , DRSG TO HIS LT ASHLEIGH OF BACK DRY AND CLEAN, POST V/S MONITOR STARTED , CALL LIGHT IN REACH. A REMOVAL OF1.7 LITER Addendum: 01/26/20 at 1924 by MICHAEL GARCIA RN RN ADDENDUM . CORRECTION . PARACENTESIS SITE RT SIDE ,
--- NOTE | 2020-01-26 16:04 | NUR ---
INITIAL Patient lives with his parents. Emergency contact is his father, Radu Stevens, [phone]. No home services or DME. Patient is independent in completing ADL's and drives. PCP is ASHLEY Loyd. [facility]acy [facility] in [place]. DCP is home. Addendum: 01/26/20 at 1606 by TIMOTEO GARCIA SS Amended: Links added.
[2020-01-26 16:09] LABS: INR 1.63 (0.85-1.15); PARTIAL THROMBOPLASTIN TIME 34.3 SEC (26.3-35.5); PROTHROMBIN TIME 17.3 SEC (9.6-11.6)
[2020-01-26] MEDS: FUROSEMIDE 10 MG/ML 4ML VIAL IV SCH (21:18)
[2020-01-27] VITALS (11 sets, daily range): BP systolic 80–124; BP diastolic 46–70
[2020-01-27 06:01] LABS: BASOPHILS % (AUTO) 0.6 % (0.0-5.0); EOSINOPHILS % (AUTO) 3.1 % (0.0-8.0); HEMATOCRIT 26.8 % (42-54); MEAN CORPUSCULAR HEMOGLOBIN 29.9 pg (27.0-33.0); MEAN CORPUSCULAR HGB CONC 33.6 g/dL (32.0-36.0); MONOCYTES % (AUTO) 11.5 % (3.0-13.0); NEUTROPHILS % (AUTO) 47.5 % (40.0-77.0); PLATELET COUNT (AUTO) 36 K/uL (130-400); RED BLOOD CELL COUNT(AUTO) 3.01 MIL/uL (4.50-6.20); RED CELL DISTRIBUTION WIDTH 18.4 % (11.0-15.5); WHITE BLOOD COUNT (AUTO) 3.2 K/uL (4.8-10.8)
[2020-01-27 06:11] LABS: INR 1.64 (0.85-1.15); PROTHROMBIN TIME 17.4 SEC (9.6-11.6)
[2020-01-27 06:20] LABS: CREATININE 0.9 mg/dL (0.5-1.5); MAGNESIUM 1.4 mg/dL (1.80-2.40)
--- NOTE | 2020-01-27 06:51 | NUR ---
Nursing Note-Paged Paged to inform about lab values, pending call back
[2020-01-27] MEDS: MAGNESIUM 2GM PREMIX 50ML 50 ML IV PRN (06:52)
[2020-01-27] MEDS: THIAMINE HCL 100 MG, FOLIC ACID 1 MG, M.V.I. IV [ADULT] 10 ML in SODIUM CHLORIDE 0.9% 1... IV SCH (07:38)
[2020-01-27] MEDS: SPIRONOLACTONE 25 MG TAB PO SCH (09:12)
[2020-01-27] MEDS: MIDODRINE HCL 5 MG TABLET PO SCH ×3 (09:12→21:49)
[2020-01-27] MEDS: FUROSEMIDE 10 MG/ML 4ML VIAL IV SCH ×2 (09:13→21:50)
[2020-01-27] MEDS: FAMOTIDINE/PF 20 MG/2 ML VIAL IV SCH ×2 (09:16→21:49)
[2020-01-27] MEDS ORDERED: POTASSIUM CHLORIDE 20MEQ/100ML 100 ML IV PRN (10:45)
[2020-01-27] MEDS ORDERED: MAGNESIUM 2GM PREMIX 50ML 50 ML IV PRN (10:45)
[2020-01-27] MEDS ORDERED: LIDOCAINE HCL-MPF 1% 2ML VIAL IV PRN (10:45)
--- NOTE | 2020-01-27 17:13 | NUR ---
THC, ETOH, Benzodiazepine Positive SW met with patient to discuss lab work positive for alcohol, THC and Benzodiazepines. Patient stated that he took about 15 pills of different medications daily so one or several of them may be the reason why he is positive for Benzodiazepines. Patient did admit to drinking liquor daily since he was a teenager. He informed SW that he was sober for about 5 months but starting drinking again one day for no particular reason. Patient states he is Khmer and so "that is what we do. We drink". Patient also admitted to smoking marijuana. He states he does it for recreational purposes only. Patient informed SW that he started smoking marijuana when he was about 16 years old. Patient was provided with community resources for substance abuse counseling. He informed SW that he is considering being placed in an inpatient facility to complete a treatment program to be clean and sober. SW discussed with patient the negative effects of substances to mental and physical health. Patient was receptive. SW will follow up with patient as needed during his hospitalization.
[2020-01-27] MEDS: POTASSIUM CHLORIDE 10% ELIXIR 20 MEQ/15 ML UDCUP PO PRN (18:07)
[2020-01-27] MEDS ORDERED: SODIUM CHLORIDE 0.9% 250 ML IV ONE (20:14)
[2020-01-27] MEDS ORDERED: PROP10TA10 PO (22:03)
[2020-01-27] MEDS ORDERED: VITA1CAP PO (22:03)
[2020-01-27] MEDS ORDERED: MIDO5TAB4 PO (22:03)
--- NOTE | 2020-01-27 22:55 | NUR ---
Nursing Note-Platelets/Thoracentesis Platelets start on pt at 2034. Platelets finished at 2103. Dr Jackson started Thoracentesis at 2054 and finished at 2114. Pt continuing with post op vitals.
--- NOTE | 2020-01-27 22:55 | NUR ---
Nursing Note Pt taken to XRay for post procedure chest xray
[2020-01-28 00:11] VITALS: BP 95/51
[2020-01-28 04:00] VITALS: BP 106/50
[2020-01-28 04:48] LABS: BASOPHILS % (AUTO) 0.5 % (0.0-5.0); EOSINOPHILS % (AUTO) 2.7 % (0.0-8.0); HEMATOCRIT 26.4 % (42-54); LYMPHOCYTES % (AUTO) 33.8 % (21.0-51.0); MEAN CORPUSCULAR HEMOGLOBIN 29.9 pg (27.0-33.0); MEAN CORPUSCULAR HGB CONC 33.7 g/dL (32.0-36.0); MEAN CORPUSCULAR VOLUME 88.6 fL (79-99); MONOCYTES % (AUTO) 12.3 % (3.0-13.0); NEUTROPHILS % (AUTO) 50.7 % (40.0-77.0); PLATELET COUNT (AUTO) 56 K/uL (130-400); RED BLOOD CELL COUNT(AUTO) 2.98 MIL/uL (4.50-6.20); RED CELL DISTRIBUTION WIDTH 18.3 % (11.0-15.5); WHITE BLOOD COUNT (AUTO) 3.7 K/uL (4.8-10.8)
[2020-01-28 05:33] LABS: ALBUMIN 2.6 g/dL (3.5-5.0); CREATININE 0.9 mg/dL (0.5-1.5); TOTAL PROTEIN, SERUM 6.8 g/dL (6.0-8.3)
--- NOTE | 2020-01-28 05:58 | NUR ---
Nursing Note Informed LIEN De Jesus about the lab values. Ordered to add on magnesium check, no other orders at this time
[2020-01-28] MEDS: POTASSIUM CHLORIDE 10% ELIXIR 20 MEQ/15 ML UDCUP PO PRN (06:15)
[2020-01-28] MEDS: MAGNESIUM 2GM PREMIX 50ML 50 ML IV PRN (06:33)
[2020-01-28 08:34] VITALS: BP 101/63
[2020-01-28] MEDS: MIDODRINE HCL 5 MG TABLET PO SCH ×3 (09:22→21:22)
[2020-01-28] MEDS: SPIRONOLACTONE 25 MG TAB PO SCH (09:22)
[2020-01-28] MEDS: POTASSIUM CHLORIDE 20 MEQ ERTAB PO PRN ×2 (09:23→21:21)
[2020-01-28] MEDS: FAMOTIDINE/PF 20 MG/2 ML VIAL IV SCH ×2 (09:24→21:19)
[2020-01-28] MEDS: FUROSEMIDE 10 MG/ML 4ML VIAL IV SCH ×2 (09:24→21:19)
[2020-01-28 11:37] VITALS: BP 110/71
[2020-01-28] MEDS: THIAMINE HCL 100 MG, FOLIC ACID 1 MG, M.V.I. IV [ADULT] 10 ML in SODIUM CHLORIDE 0.9% 1... IV SCH (12:00)
[2020-01-28 17:01] VITALS: BP 100/64
[2020-01-28 19:52] VITALS: BP 105/61
[2020-01-29] MEDS: POTASSIUM CHLORIDE 20 MEQ ERTAB PO PRN ×3 (00:05→13:14)
[2020-01-29 00:22] VITALS: BP 103/69
[2020-01-29 04:00] VITALS: BP 101/61
[2020-01-29 05:44] LABS: BASOPHILS % (AUTO) 0.3 % (0.0-5.0); EOSINOPHILS % (AUTO) 2.7 % (0.0-8.0); LYMPHOCYTES % (AUTO) 36.9 % (21.0-51.0); MEAN CORPUSCULAR HEMOGLOBIN 29.6 pg (27.0-33.0); MEAN CORPUSCULAR HGB CONC 33.2 g/dL (32.0-36.0); MEAN CORPUSCULAR VOLUME 89.2 fL (79-99); MONOCYTES % (AUTO) 14.8 % (3.0-13.0); PLATELET COUNT (AUTO) 65 K/uL (130-400); RED BLOOD CELL COUNT(AUTO) 3.14 MIL/uL (4.50-6.20); RED CELL DISTRIBUTION WIDTH 18.8 % (11.0-15.5); WHITE BLOOD COUNT (AUTO) 3.7 K/uL (4.8-10.8)
[2020-01-29 06:03] LABS: ALBUMIN 2.8 g/dL (3.5-5.0); BILIRUBIN,TOTAL 5.2 mg/dL (0.2-1.0); CREATININE 0.9 mg/dL (0.5-1.5); MAGNESIUM 1.4 mg/dL (1.80-2.40); POTASSIUM 3.7 mmol/L (3.5-5.1); TOTAL PROTEIN, SERUM 7.2 g/dL (6.0-8.3)
[2020-01-29 08:00] VITALS: BP 105/70
[2020-01-29] MEDS: FAMOTIDINE/PF 20 MG/2 ML VIAL IV SCH (10:04)
[2020-01-29] MEDS: FUROSEMIDE 10 MG/ML 4ML VIAL IV SCH (10:05)
[2020-01-29] MEDS: SPIRONOLACTONE 25 MG TAB PO SCH (10:05)
[2020-01-29] MEDS: MIDODRINE HCL 5 MG TABLET PO SCH (10:05)
[2020-01-29 11:56] VITALS: BP 109/81
[2020-01-29] MEDS ORDERED: PHARMACY COMMUNICATION MISC SCH (13:00)
--- NOTE | 2020-01-29 13:22 | NUR ---
DISCHARGE INSTRUCTIONS GIVEN TO PATIENT MADE AWARE OF NEED TO FOLLOW UP WITH PCP 3-5 DAYS AND KEEP APPOINTMENT WITH DR. HEBERT. IV REMOVED. MADE AWARE ALL HOME MEDICATIONS CONTINUE WITH NO CHANGE. PATIENT AT THIS TIME AWAKE ALERT ORIENTED, DENIES PAIN OR SHORTNESS OF BREATH. NO SIGNS AND SYMPTOMS OF ACUTE DISTRESS NOTED. WAITING FOR FRIEND TO PICK HIM UP
[2020-01-29] MEDS ORDERED: MIDODRINE HCL 5 MG TABLET PO SCH (14:00)
[2020-01-29] MEDS ORDERED: PANTOPRAZOLE SODIUM 40 MG TABLET.DR PO SCH (17:00)
[2020-01-29] MEDS ORDERED: RIFAXIMIN 550 MG TABLET PO SCH (21:00)
[2020-01-29] MEDS ORDERED: PROPRANOLOL HCL 10 MG TAB PO SCH (21:00)
[2020-01-29] MEDS ORDERED: LACTULOSE 20 GM/30 ML UDCUP PO SCH (21:00)
[2020-01-30] MEDS ORDERED: SPIRONOLACTONE 25 MG TAB PO SCH (08:00)
[2020-01-30] MEDS ORDERED: FUROSEMIDE 20 MG TABLET PO SCH (09:00)
[2020-01-30] MEDS ORDERED: VITAMIN B COMPLEX 1 CAPSULE PO SCH (09:00)
== END 2020-01-29 13:35 | disposition home or self-care (01) | DRG 433 ==
LOC: EDH 09:08 → OBSVTOIN 12:51 → EDHIP 12:51 → 4DH 14:02
PROVIDERS: ADMIT Internal Medicine; ATTEND Internal Medicine
PROC: 0W9G3ZZ Drainage of Peritoneal Cavity, Percutaneous Approach (ICD-10-PCS; principal; 2020-01-26)
PROC: 30233N1 Transfusion of Nonautologous Red Blood Cells into Peripheral Vein, Percutaneous Approach (ICD-10-PCS; 2020-01-27)
PROC: 0W9B3ZZ Drainage of Left Pleural Cavity, Percutaneous Approach (ICD-10-PCS; 2020-01-27)
DX: K70.31 Alcoholic cirrhosis of liver with ascites (principal); J90 Pleural effusion, not elsewhere classified; E87.2 Acidosis; E87.1 Hypo-osmolality and hyponatremia; K76.6 Portal hypertension; K70.11 Alcoholic hepatitis with ascites; E86.0 Dehydration; Y90.8 Blood alcohol level of 240 mg/100 ml or more; F10.129 Alcohol abuse with intoxication, unspecified; D69.59 Other secondary thrombocytopenia; J45.909 Unspecified asthma, uncomplicated; E83.42 Hypomagnesemia; E87.6 Hypokalemia; F17.200 Nicotine dependence, unspecified, uncomplicated; Z91.14 Patient's other noncompliance with medication regimen
CPT/HCPCS: 32554; 36415; 36430; 49083; 70450; 71045; 71046; 80048; 80053; 80305; 81001; 82140; 82465; 82550; 82945; 82948; 83605; 83615; 83690; 83735; 84100; 84145; 84157; 84484; 85025; 85610; 85730; 86140; 86850; 86900; 86901; 87070; 87071; 87076; 87116; 87205; 87206; 93971; G0378; G0480; J1940; J2405; J3411; J3475; J3480; J3490; J7030; P9034

== ENCOUNTER → 2020-03-30 | Outpatient (CLI) | payer OTHER ==
[~2020-03-30] MED LIST changes: +ALBUMIN (HUMAN) 25% 200 ML IV SCH; +PROP10TA10 PO; +VITA1CAP PO
[2020-03-30 09:28] LABS: ALANINE AMINOTRANSFERASE 17 U/L (12-78); ALBUMIN 3.6 g/dL (3.5-5.0); ASPARTATE AMINOTRANSFERASE 51 U/L (10-37); BILIRUBIN,TOTAL 5.9 mg/dL (0.2-1.0); CARBON DIOXIDE 29 mmol/L (21-32); CHLORIDE 99 mmol/L (101-111); CREATININE 0.7 mg/dL (0.5-1.5); GLOMERULAR FILTR. RATE CALC 135 mL/min (>60); GLUCOSE,RANDOM 99 mg/dL (70-105); POTASSIUM 4.1 mmol/L (3.5-5.1); SODIUM SERUM 134 mmol/L (136-145); TOTAL PROTEIN, SERUM 9.1 g/dL (6.0-8.3); UREA NITROGEN, BLOOD 8 mg/dL (7-18)
[2020-03-30 09:30] LABS: BASOPHILS % (AUTO) 0.9 % (0.0-5.0); HEMATOCRIT 33.2 % (42-54); LYMPHOCYTES % (AUTO) 32.4 % (21.0-51.0); MEAN CORPUSCULAR HEMOGLOBIN 31.7 pg (27.0-33.0); MEAN CORPUSCULAR HGB CONC 32.8 g/dL (32.0-36.0); MEAN CORPUSCULAR VOLUME 96.5 fL (79-99); MONOCYTES % (AUTO) 11.9 % (3.0-13.0); NEUTROPHILS % (AUTO) 51.6 % (40.0-77.0); PLATELET COUNT (AUTO) 160 K/uL (130-400); RED BLOOD CELL COUNT(AUTO) 3.44 MIL/uL (4.50-6.20); RED CELL DISTRIBUTION WIDTH 17.3 % (11.0-15.5); WHITE BLOOD COUNT (AUTO) 5.7 K/uL (4.8-10.8)
--- NOTE | 2020-03-30 09:30 | NUR ---
PROCEDURE PATIENT SCHEDULED FOR PARACENTESIS. IMAGES TAKEN AND REVIEWED BY DR Nidia AVILA. MINIMAL FLUID SEEN AND PROCEDURE CANCELED. PROCEDURE OUTCOME EXPLAINED TO PATIENT AND VERBALIZED UNDERSTANDING. DISCHARGED VIA W/C AT 0930.
[2020-03-30 09:34] LABS: INR 1.64 (0.85-1.15); PROTHROMBIN TIME 17.4 SEC (9.6-11.6)
== END ==
LOC: RAH 07:55
PROVIDERS: ATTEND Internal Medicine
DX: K70.31 Alcoholic cirrhosis of liver with ascites (principal); G93.40 Encephalopathy, unspecified; E61.2 Magnesium deficiency; R60.0 Localized edema; E63.9 Nutritional deficiency, unspecified; R93.3 Abnormal findings on diagnostic imaging of other parts of digestive tract
CPT/HCPCS: 36415; 76705; 80053; 82105; 82306; 82746; 85025; 85610; P9046

== ENCOUNTER → 2020-04-14 | Outpatient (CLI) | payer OTHER ==
[~2020-04-14] MED LIST changes: -ALBUMIN (HUMAN) 25% 200 ML IV SCH; +FOLI1 PO; +FURO40TA5 PO; +LACT10SO PO; +VITAMIN D PO
== END ==
LOC: CANPRESDC → DAH 10:00 → EDSTATUS 04-21 08:45
PROVIDERS: ATTEND Internal Medicine Gastroenterology
DX: Z01.818 Encounter for other preprocedural examination (principal); I85.10 Secondary esophageal varices without bleeding; K70.31 Alcoholic cirrhosis of liver with ascites; K72.91 Hepatic failure, unspecified with coma; Z11.59 Encounter for screening for other viral diseases
CPT/HCPCS: 36415; U0003

== ENCOUNTER 2020-04-17 12:37 | Observation (INO) | payer OTHER ==
[~2020-04-17 12:37] MED LIST changes: -FOLI1 PO; -FURO40TA5 PO; -LACT10SO PO; -VITAMIN D PO
[2020-04-17 13:50] LABS: BASOPHILS % (AUTO) 0.8 % (0.0-5.0); EOSINOPHILS % (AUTO) 3.6 % (0.0-8.0); HEMATOCRIT 31.7 % (42-54); LYMPHOCYTES % (AUTO) 26.5 % (21.0-51.0); MEAN CORPUSCULAR HEMOGLOBIN 31.5 pg (27.0-33.0); MEAN CORPUSCULAR HGB CONC 33.8 g/dL (32.0-36.0); MEAN CORPUSCULAR VOLUME 93.2 fL (79-99); MONOCYTES % (AUTO) 13.3 % (3.0-13.0); NEUTROPHILS % (AUTO) 55.6 % (40.0-77.0); PLATELET COUNT (AUTO) 146 K/uL (130-400); RED CELL DISTRIBUTION WIDTH 17.2 % (11.0-15.5); WHITE BLOOD COUNT (AUTO) 6.1 K/uL (4.8-10.8)
[2020-04-17 13:56] LABS: CREATININE 0.8 mg/dL (0.5-1.5); INR 1.61 (0.85-1.15); PARTIAL THROMBOPLASTIN TIME 33.5 SEC (26.3-35.5); PROTHROMBIN TIME 17.1 SEC (9.6-11.6)
[2020-04-17 14:03] LABS: ALBUMIN 3.3 g/dL (3.5-5.0); BILIRUBIN,TOTAL 4.8 mg/dL (0.2-1.0); TOTAL PROTEIN, SERUM 8.8 g/dL (6.0-8.3)
[2020-04-17] MEDS ORDERED: ACETAMINOPHEN 325 MG TAB PO PRN (17:45)
[2020-04-17] MEDS ORDERED: LORAZEPAM 2 MG/ML 1 ML VIAL IVP PRN (17:45)
[2020-04-17] MEDS ORDERED: ONDANSETRON HCL 4 MG/2 ML VIAL IVP PRN (17:45)
[2020-04-17] MEDS ORDERED: CHLORDIAZEPOXIDE HCL 25 MG CAP PO PRN (17:45)
[2020-04-17] MEDS ORDERED: THIAMINE HCL 100 MG, FOLIC ACID 1 MG, M.V.I. IV [ADULT] 10 ML in SODIUM CHLORIDE 0.9% 1... IV SCH (17:45)
[2020-04-17] MEDS ORDERED: PHARMACY COMMUNICATION MISC PRN (17:45)
[2020-04-17] MEDS ORDERED: PANTOPRAZOLE 40 MG/VIAL IVP SCH (21:00)
== END 2020-04-17 18:22 | disposition left against medical advice (07) ==
LOC: EDH 12:37 → EDHIP 17:37
PROVIDERS: ADMIT Hospitalist; ATTEND Hospitalist
DX: K92.2 Gastrointestinal hemorrhage, unspecified (principal); K74.60 Unspecified cirrhosis of liver; D64.9 Anemia, unspecified; F17.200 Nicotine dependence, unspecified, uncomplicated; F12.90 Cannabis use, unspecified, uncomplicated; Z87.09 Personal history of other diseases of the respiratory system; Z79.899 Other long term (current) drug therapy
CPT/HCPCS: 36415; 80053; 82270; 85025; 85610; 85730; 99284; G0378; J3411; J3490; J7030; C9113

== ENCOUNTER 2020-04-26 06:55 | Day surgery (SDC) | payer OTHER ==
[2020-04-26] VITALS (14 sets, daily range): BP systolic 101–133; BP diastolic 57–78
[~2020-04-26] VITALS: Ht 160 cm; Wt 75.7 kg
[~2020-04-26 06:55] MED LIST changes: -PANT40TA25 PO; +PANT40TA55 PO; +SODIUM CHLORIDE 0.9% 1000ML 1,000 ML IV ONE
[2020-04-26] MEDS ORDERED: FOLI1 PO (08:57)
[2020-04-26] MEDS ORDERED: MIDAZOLAM HCL 1 MG/ML 2ML VIAL ONE (09:06)
[2020-04-26] MEDS ORDERED: PROPOFOL 10 MG/ML 20ML VIAL IV ONE (09:06)
[2020-04-26 09:55] LABS: CREATININE 0.6 mg/dL (0.5-1.5); POTASSIUM 3.8 mmol/L (3.5-5.1)
--- NOTE | 2020-04-26 11:05 | NUR ---
PATIENT TAKEN TO RADIOLOGY DEPT FOR CT SCAN
[2020-04-26] MEDS ORDERED: IOHEXOL-350 75 ML VIAL IV ONE (11:08)
--- NOTE | 2020-04-26 11:30 | NUR ---
PATIENT BROUGHT BACK TO GI PACU FROM RADIOLOGY DEPT VIA STRETCHER
== END 2020-04-26 11:35 | disposition home or self-care (01) ==
LOC: ENDO 06:55 → DAH 06:55 → EDSTATUS 08:00 → ENDO 11:35
PROVIDERS: ATTEND Internal Medicine Gastroenterology
DX: I85.00 Esophageal varices without bleeding (principal); K76.6 Portal hypertension; K31.89 Other diseases of stomach and duodenum; K70.31 Alcoholic cirrhosis of liver with ascites; K72.91 Hepatic failure, unspecified with coma; E63.9 Nutritional deficiency, unspecified; J90 Pleural effusion, not elsewhere classified; I10 Essential (primary) hypertension; I25.10 Atherosclerotic heart disease of native coronary artery without angina pectoris; K21.9 Gastro-esophageal reflux disease without esophagitis; Z98.890 Other specified postprocedural states; Z79.899 Other long term (current) drug therapy
CPT/HCPCS: 36415; 43235; 74178; 80048; A4215; A4221; A4222; A4223; A4606; A4620; A4657; A4663; J2250; J2704; J7030; Q9967

== ENCOUNTER → 2020-05-25 | Outpatient (CLI) | payer OTHER ==
[~2020-05-25] MED LIST changes: +ALBUMIN (HUMAN) 25% 200 ML IV SCH; +FOLI1 PO; +FURO40TA5 PO; +LACT10SO PO; -SODIUM CHLORIDE 0.9% 1000ML 1,000 ML IV ONE; +VITAMIN D PO
--- NOTE | 2020-05-25 09:02 | NUR ---
U/S GD PARACENTESIS PROCEDURE PERFORMED BY DR. OCASIO. PUNCTURE SITE RIGHT UPPER QUADRANT OF ABDOMEN AND PATIENT TOLERATED PROCEDURE WELL. TOTAL REMOVED 800 MILLLITERS OF CLOUDY YELLOW FLUID. END OF PROCEDURE AT 0912. CATHETER REMOVED AND DRESSING APPLIED. NO BLEEDING NOTED. ALBUMIN 25% 50 GRAMS GIVEN DURING PROCEDURE PER [facility] [place] [facility] PROT[place]. DRESSING DRY AND INTACT. DISCHARGE INSTRUCTIONS GIVEN TO PATIENT. PATIENT VERBALIZED UNDERSTANDING. PT DISCHARGED VIA W/C, STABLE, AAO X3 WITH NO C/O PAIN. SPECIMEN SENT TO LAB.
[2020-05-25 09:08] LABS: HEMATOCRIT 34.5 % (42-54); MEAN CORPUSCULAR HEMOGLOBIN 32.6 pg (27.0-33.0); MEAN CORPUSCULAR HGB CONC 33.3 g/dL (32.0-36.0); MEAN CORPUSCULAR VOLUME 97.7 fL (79-99); PLATELET COUNT (AUTO) 169 K/uL (130-400); RED BLOOD CELL COUNT(AUTO) 3.53 MIL/uL (4.50-6.20); RED CELL DISTRIBUTION WIDTH 16.8 % (11.0-15.5)
[2020-05-25 09:22] LABS: AMPHET/METH SCREEN,URINE NEGATIVE (NEGATIVE); BARBITURATE SCREEN, URINE NEGATIVE (NEGATIVE); BENZODIAZEPINES SCREEN,URINE NEGATIVE (NEGATIVE); CANNABINOID SCREEN,URINE POSITIVE (NEGATIVE); COCAINE SCREEN,URINE NEGATIVE (NEGATIVE); OPIATE SCREEN,URINE NEGATIVE (NEGATIVE); PHENCYCLIDINE SCREEN,URINE NEGATIVE (NEGATIVE)
[2020-05-25 09:40] LABS: INR 1.45 (0.85-1.15); PROTHROMBIN TIME 15.4 SEC (9.6-11.6)
[2020-05-25 09:46] LABS: ALBUMIN 3.6 g/dL (3.5-5.0); BILIRUBIN,TOTAL 4.7 mg/dL (0.2-1.0); CREATININE 0.5 mg/dL (0.5-1.5); POTASSIUM 3.8 mmol/L (3.5-5.1); TOTAL PROTEIN, SERUM 8.9 g/dL (6.0-8.3)
[2020-05-25 09:52] LABS: EOSINOPHILS % (MANUAL) 4 % (1-6); LYMPHOCYTES % (MANUAL) 27 % (22-44); MAN.DIFF COMMENT-IMPRESSION MANUAL DIFFERENTIAL; MONOCYTES % (MANUAL) 11 % (2-9); PLATELET MORPHOLOGY COMMENT ADEQUATE; SEGMENTED NEUTROPHILS % 58 % (40-70)
[2020-05-25 14:15] LABS: APPEARANCE BODY FLUID CLOUDY (CLEAR); BODY FLUID RBC 3125 /cu. mm.; BODY FLUID WBC 878 /cu. mm.; COLOR,BODY FLUID DARK YELLOW (LT YELLOW); SPECIMENTYPE,BODY FLUID ASCITES; TOTAL VOLUME,BODY FLUID 800 mL
[2020-05-25 14:24] LABS: BF LYMPHOCYTE 77 %; BF MESOTHELIAL 19 %; BF MONOCYTE 4 %
== END | disposition home or self-care (01) ==
LOC: RAH 07:26
PROVIDERS: ATTEND Internal Medicine
DX: K70.31 Alcoholic cirrhosis of liver with ascites (principal); Z79.899 Other long term (current) drug therapy; Z87.891 Personal history of nicotine dependence; Z72.89 Other problems related to lifestyle
CPT/HCPCS: 36415; 49083; 80053; 80305; 82105; 82378; 85025; 85610; 89051; A4215; P9046

== ENCOUNTER 2020-05-26 06:49 | Day surgery (SDC) | payer OTHER ==
[~2020-05-26] VITALS: Ht 160 cm; Wt 68.5 kg
[~2020-05-26 06:49] MED LIST changes: -ALBUMIN (HUMAN) 25% 200 ML IV SCH; -FURO40TA5 PO; -LACT10SO PO; +PANT40TA25 PO; -PANT40TA55 PO; +SODIUM CHLORIDE 0.9% 1000ML 1,000 ML IV ONE; -VITAMIN D PO
[2020-05-26 07:05] VITALS: BP 112/69
[2020-05-26] MEDS ORDERED: FURO40TA5 PO (07:27)
[2020-05-26] MEDS ORDERED: VITAMIN D PO (07:27)
[2020-05-26] MEDS ORDERED: LACT10SO PO (07:27)
[2020-05-26] MEDS ORDERED: PROPOFOL 10 MG/ML 20ML VIAL IV ONE ×2 (08:13→08:22)
[2020-05-26] MEDS ORDERED: LIDOCAINE HCL 1% 20 ML VIAL ONE (08:13)
[2020-05-26 08:30] VITALS: BP 110/66
[2020-05-26 08:35] VITALS: BP 103/58
[2020-05-26 08:40] VITALS: BP 106/58
== END 2020-05-26 09:00 | disposition home or self-care (01) ==
LOC: DAH 06:49
PROVIDERS: ATTEND Internal Medicine
DX: K55.20 Angiodysplasia of colon without hemorrhage (principal); Z11.59 Encounter for screening for other viral diseases; K57.30 Diverticulosis of large intestine without perforation or abscess without bleeding; K64.0 First degree hemorrhoids; Z79.899 Other long term (current) drug therapy; Z87.891 Personal history of nicotine dependence; Z72.89 Other problems related to lifestyle; Z98.890 Other specified postprocedural states
CPT/HCPCS: 36415; 45378; A4215; A4221; A4222; A4223; A4606; A4620; A4663; J2704 ×2; J7030; U0003

== ENCOUNTER → 2020-06-08 | Outpatient (CLI) | payer OTHER ==
[~2020-06-08] MED LIST changes: -FURO20TA4 PO; +FURO40TA5 PO; -LACT PO; +LACT10SO PO; -SODIUM CHLORIDE 0.9% 1000ML 1,000 ML IV ONE; -VITA1CAP PO; +VITAMIN D PO
--- NOTE | 2020-06-08 11:00 | NUR ---
U/S GD RT THORACENTESIS PROCEDURE PERFORMED BY DR Florian OCASIO. PUNCTURE SITE RT POSTERIOR BACK AND PATIENT TOLERATED PROCEDURE WELL. TOTAL REMOVED 1.4 LITERS OF CLOUDY YELLOW FLUID. END OF PROCEDURE AT 1030. CATHETER REMOVED AND DRESSING APPLIED. NO BLEEDING NOTED. POST CHEST X-RAY TAKEN AND READ BY DR OCASIO. NO PNEUMOTHORAX SEEN. DISCHARGE INSTRUCTIONS GIVEN TO PATIENT AND VERBALIZED UNDERSTANDING. DISCHARGED VIA AMBULATION AT 1100. AAO X3 WITH NO C/O PAIN.
== END ==
LOC: RAH 08:49
PROVIDERS: ATTEND Internal Medicine
DX: J90 Pleural effusion, not elsewhere classified (principal); Z98.890 Other specified postprocedural states; R93.3 Abnormal findings on diagnostic imaging of other parts of digestive tract
CPT/HCPCS: 32555; 71045; A4215

== ENCOUNTER → 2020-09-06 | Outpatient (CLI) | payer OTHER ==
[~2020-09-06] MED LIST changes: +IOHEXOL 350 MG/ML 100ML INFUS..BTL IV ONE; -PANT40TA25 PO; +PANT40TA55 PO
== END | disposition home or self-care (01) ==
LOC: RAH 08:48
PROVIDERS: ATTEND Internal Medicine Gastroenterology
DX: R16.1 Splenomegaly, not elsewhere classified (principal); R93.3 Abnormal findings on diagnostic imaging of other parts of digestive tract; K76.89 Other specified diseases of liver
CPT/HCPCS: 74178; Q9967

== ENCOUNTER → 2022-06-29 | Outpatient (CLI) | payer OTHER ==
[~2022-06-29] MED LIST changes: +GADOTERATE MEGLUMINE 10 MMOL/20 ML VIAL IV ONE; -IOHEXOL 350 MG/ML 100ML INFUS..BTL IV ONE; -LACT10SO PO; +LACT10SO5 PO
== END | disposition home or self-care (01) ==
LOC: RAH 08:50
PROVIDERS: ATTEND Internal Medicine Gastroenterology
DX: K70.31 Alcoholic cirrhosis of liver with ascites (principal); R93.3 Abnormal findings on diagnostic imaging of other parts of digestive tract; K76.89 Other specified diseases of liver; R16.1 Splenomegaly, not elsewhere classified
CPT/HCPCS: 74183; A9575